=== PATIENT | male | born 1975 | race Caucasian/White ===

== ENCOUNTER → 2018-06-05 | Outpatient (CLI) | payer OTHER ==
--- NOTE | 2018-06-05 15:40 | Diagnostic Imaging Report ---
Indication: Cough x3 months PA and lateral chest Heart size and pulmonary vascularity are normal. The lungs are clear. There are no effusions or pneumothoraces. Impression: Negative chest. Dictated by: Dictated on workstation # [id number]
== END ==
LOC: RAD 14:08
PROVIDERS: ATTEND Nurse Practitioner Family
DX: J30.9 Allergic rhinitis, unspecified (principal); R05 Cough; E66.9 Obesity, unspecified; K21.9 Gastro-esophageal reflux disease without esophagitis
CPT/HCPCS: 71046

== ENCOUNTER 2018-06-10 15:15 | Outpatient (CLI) | payer OTHER | END 2018-06-10 15:22 | disposition home or self-care (01) | LOC: SLEEP 15:15 | PROVIDERS: ATTEND Nurse Practitioner Family | DX: G47.9 Sleep disorder, unspecified (principal) ==

== ENCOUNTER → 2018-06-20 | Outpatient (CLI) | payer OTHER ==
[~2018-06-20] MED LIST: RT-ALBUTEROL SULF 2.5 MG/3 ML PRE-MIX VIAL INH ONE
== END ==
LOC: RT 12:46
PROVIDERS: ATTEND Nurse Practitioner Family
DX: J30.9 Allergic rhinitis, unspecified (principal); R05 Cough
CPT/HCPCS: 94060; 94726; 94729

== ENCOUNTER → 2022-07-16 | Outpatient (CLI) | payer BC, OTHER ==
--- NOTE | 2022-07-16 13:44 | Diagnostic Imaging Report ---
Indication: Right axillary swelling for 3 months. Sonographic interrogation of the area of swelling right axilla was performed. No sonographic abnormality is seen. No solid or cystic mass is detected. Impression: No sonographic abnormality is detected. Dictated by: Dictated on workstation # [id number]
== END ==
LOC: RAD 07:43
PROVIDERS: ATTEND Family Medicine
DX: R22.31 Localized swelling, mass and lump, right upper limb (principal)
CPT/HCPCS: 76881